=== PATIENT | female | born 1975 | race Caucasian/White ===

== ENCOUNTER 2017-09-21 17:25 | Emergency (ER) | payer MEDICAID ==
[2017-09-21] MEDS ORDERED: Morphine 2 MG/ML Syringe IVPUSH ONE (17:51)
[2017-09-21] MEDS ORDERED: Nitroglycerin 0.4 MG Tab.SL SL PRN (18:13)
[2017-09-21] MEDS ORDERED: Heparin Sodium 5,000 UNITS/0.5 ML Syringe IVPUSH ONE (18:39)
[2017-09-21] MEDS ORDERED: Clopidogrel 75 MG Tab PO ONE (18:40)
[2017-09-21] MEDS ORDERED: Heparin Sodium/D5W 25,000 UNITS/500 ML BAG IV SCH (18:45)
--- NOTE | 2017-09-21 18:45 | EDM.PDOC ---
ED HPI GENERAL MEDICAL PROBLEM - General Time Seen by Provider: 09/21/17 18:00 Source of Information: Reports: Patient History Limitations: Reports: No Limitations - History of Present Illness INITIAL COMMENTS - FREE TEXT/NARRATIVE: According to patient she claims that she was sleeping in her bed and felt a sudden onset of chest pain. Chest pain was over the precardium and was radiating into her left arm and finger. Rates at 9/10. She did call EMT. She is here in the emergency room. Rates her EKG at 9/10. No nausea/vomiting. Epigastrium pain, but has been belching on and off. No pain with deep breathing. pt claims that she had MA in 2000 when she was in [facility] and has one stent placed. Onset: Today Onset Date: 09/21/17 Onset Time: 18:00 Duration: Hour(s): (1) Location: Reports: Chest Quality: Reports: Pressure, Sharp Severity: Severe Improves with: Reports: None Worsens with: Reports: None Associated Symptoms: Reports: Chest Pain. 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: Psychiatric History: Reports: Depression - Past Surgical History Cardiovascular Surgical History: Reports: Coronary Artery Stent GI Surgical History: Reports: Bariatric Procedure Female Surgical History: Reports: Section Neurological Surgical History: Reports: C-Spine, Discectomy, Spinal Fusion Social & Family History - Tobacco Use Smoking Status *Q: Current Every Day Smoker Years of Tobacco use: 25 Packs/Tins Daily: 1 Used Tobacco, but Quit: No Month Tobacco Last Used: Dec Second Hand Smoke Exposure: Yes - Alcohol Use Days Per Week of Alcohol Use: 0 - Recreational Drug Use Recreational Drug Use: No ED ROS GENERAL - Review of Systems Review Of Systems: See Below Constitutional: Denies: Fever, Chills HEENT: Denies: Rhinitis, Sinus Problem, Throat Pain, Throat Swelling Respiratory: Denies: Shortness of Breath, Wheezing, Cough, Sputum Cardiovascular: Reports: Chest Pain, Lightheadedness GI/Abdominal: Denies: Abdominal Pain, Nausea, Vomiting : Denies: Discharge, Dysuria Musculoskeletal: Denies: Neck Pain, Shoulder Pain, Joint Pain, Joint Swelling Skin: Denies: Pruritis, Rash Neurological: Denies: Confusion, Dizziness, Headache, Syncope, Tingling, Weakness ED EXAM, GENERAL - Physical Exam Exam: See Below Exam Limited By: No Limitations General Appearance: Alert, WD/WN, Anxious, Moderate Distress Eye Exam: Bilateral Eye: EOMI, PERRL Ears: Normal External Exam, Normal Canal, Hearing Grossly Normal, Normal TMs Ear Exam: Bilateral Ear: Auricle Normal, Canal Normal, TM normal Nose: Normal Inspection, Normal Mucosa, No Blood Throat/Mouth: Normal Inspection, Normal Lips, Normal Teeth, Normal Gums, Normal Oropharynx, Normal Voice, No Airway Compromise Head: Atraumatic, Normocephalic Neck: Normal Inspection, Supple, Non-Tender, Full Range of Motion Respiratory/Chest: No Respiratory Distress, Lungs Clear, Normal Breath Sounds, No Accessory Muscle Use, Chest Non-Tender Cardiovascular: Normal Peripheral Pulses, Regular Rate, Rhythm, No Edema, No Gallop, No JVD, No Murmur, No Rub Peripheral Pulses: 4+: Radial (L), Radial (R), Posterior Tibial (L), Posterior Tibial (R), Dorsalis Pedis (L), Dorsalis Pedis (R) GI/Abdominal: Normal Bowel Sounds, Soft, Non-Tender, No Organomegaly, No Distention, No Abnormal Bruit, No Mass Back Exam: Normal Inspection, Full Range of Motion, NT Extremities: Normal Inspection, Normal Range of Motion, Non-Tender, Normal Capillary Refill, No Pedal Edema Neurological: Alert, Oriented, CN II-XII Intact, Normal Cognition, Normal Gait, Normal Reflexes, No Motor/Sensory Deficits Skin Exam: Warm, Intact EKG INTERPRETATION Rate (Beats/Min): [address]: Normal P-Wave: Present ST-T: Elevated (lead 2,3 and AVF) Course - Vital Signs Text/Narrative:: Pt rates her pain at 9/10 on admission, EKG was done, which does show ST elevation in Lead 2,3 and AVF.Appear like acute inferior wall MA. Pt did receive 4mg S/C morphine and Oxygen was started and lab work ordered. Pt did receive plavix 600mg PO and also heparin 4000 units bolus given followed by 1000 units/hr maintenance. I did call [facility] and discuss patient with Dr. Ahmadi the body maker change control specialist. He was accepting the patient, but helicopter could not fly due to bad weather and the fixed wing could not fly to [place] due to the airport not being ploughed. Hence at this point I did call [facility], but unfortunately could not get hold of the body maker to discuss the patient. the fixed wing from [place] could not fly until they had accepting physician at [facility]. Around 7:00 PM , I did reexamine patient and asked to rate her pain, and she said it was down to 5/10. And soon pt just held her chest and fell backwards and turned pale and started to have agonal breaths. Immediately pt was reassessed, she had no palpable pulse or Blood pressure.Code was called. CPR was started around 7:07PM and Immediately patient was intubated. She was in ventricular fibrillation and she went into asystole, she did receive 2 shocks and 3 IV epinephrine and she has no palpable pulse or breathing and her monitor showed asystole after 14 minutes of resuscitation around At which point Pt was declared at 7:21 PM. pt's pupils were dilated to 6mm and fixed. As the patient was extubated and IV lines were removed and nurses were cleaning up the patient, patient started to have slow breaths spontaneously. Pt was placed on monitor and she had pulse around 30/minute. She had palpable central pulses. Pt was re-intubated immediately and 2 Intraosseous lines were obtained and Amidarone 150mg IV was given over 10minutes followed by maintenance infusion. Pt's Pulse did improve and rate was around 70-80 and her blood pressure slowly improved and was around 130/86mmhg. Pt's chest xray post intubation was in place. her Spo2 was well maintained at 100%. At which point I did call back to [facility], and discuss the Post-resuscitation with Dr. Pollock the emergency room physician. He does agree to accept the patient. At this point weather seems to be getting better and the [facility] ambulance is going to be here to transfer patient. Pt's presently is intubated and maintaining her blood pressure. She has IV heparin at 1000 units/hr and also on amidarone maintenance drip. She vitals are stable. Pt is transferred by air ambulance to [facility]. Further care per Dr. Pollock. - Orders/Labs/Meds Orders: Active Orders 24 hr Category Date Time Status EKG Documentation Completion [RC] ASDIRECTED Care 09/21/17 17:50 Active Oxygen Therapy [RC] ASDIRECTED Care 09/21/17 18:12 Active Chest 1V Frontal [CR] Stat Exams 09/21/17 Taken Chest 1V Frontal [CR] Stat Exams 09/21/17 17:51 Taken Heparin Sodium/D5W [Heparin 25,000 Units in D5W 500 ML] Med 09/21/17 18:45 Pending 25,000 units in 500 ml IV TITRATE Nitroglycerin [Nitrostat] Med 09/21/17 18:13 Active 0.4 mg SL Q5M PRN Medication Orders Heparin Sodium/Dextrose (Heparin 25,000 Units In D5w 500 Ml) 25,000 units in 500 mls @ 0 mls/hr IV TITRATE VITA PRN Reason: 1,000 UNITS/KG/HR Nitroglycerin (Nitrostat) 0.4 mg SL Q5M PRN PRN Reason: Chest Pain Labs: Laboratory Tests 09/21/17 09/21/17 09/21/17 Range/Units 18:20 18:20 18:20 WBC 11.2 H D (4.0-11.0) K/uL RBC 4.26 (3.80-5.80) M/uL Hgb 9.0 L (11.5-16.5) g/dL Hct 29.6 L (37.0-47.0) % MCV 70 L (76-96) fL MCH 21.1 L (27.0-32.0) pg MCHC 30.4 L (31.0-35.0) g/dL RDW 18.6 H (11.0-16.0) % Plt Count 380 D (150-500) K/uL MPV 9.4 (6.0-10.0) fL Neut % (Auto) 54.5 (45.0-70.0) % Lymph % (Auto) 34.5 (20.0-40.0) % Moffat % (Auto) 6.5 (3.0-10.0) % Eos % (Auto) 3.7 (1.0-5.0) % Baso % (Auto) 0.8 H (0.0-0.5) % Neut # (Auto) 6.11 (2.00-7.50) K/uL Lymph # (Auto) 3.87 (1.50-4.00) K/uL Moffat # (Auto) 0.73 (0.20-0.80) K/uL Eos # (Auto) 0.42 H (0.04-0.40) K/uL Baso # (Auto) 0.09 (0.02-0.10) K/uL PT 9.3 (9.0-11.5) sec INR 1.0 (1.0-3.5) APTT 21.0 L (27.0-35.0) SECONDS Sodium 141 (136-145) mmol/L Potassium 3.4 L (3.5-5.1) mmol/L Chloride 104 (98-107) mmol/L Carbon Dioxide 21.2 (21.0-32.0) mmol/L Anion Gap 19.2 H (5.0-15.0) mmol/L BUN 8 D (8-26) mg/dL Creatinine 0.72 (0.55-1.02) mg/dL Est Cr Clr Drug Dosing TNP Estimated GFR (MDRD) > 60 (>60) MLS/MIN BUN/Creatinine Ratio 11.1 (6-25) Glucose 117 H D (74-100) mg/dL Calcium 8.7 (8.5-10.1) mg/dL Total Bilirubin 0.1 D (0.0-1.0) mg/dL AST 20 (15-37) U/L ALT 21 (12-78) U/L Alkaline Phosphatase 82 (46-116) U/L Troponin I (0.000-0.060) ng/mL Total Protein 7.1 (6.4-8.2) g/dL Albumin 3.3 L (3.4-5.0) g/dL Globulin 3.8 (2.2-4.2) g/dL Albumin/Globulin Ratio 0.9 (0.8-2.0) 09/21/17 Range/Units 18:20 WBC (4.0-11.0) K/uL RBC (3.80-5.80) M/uL Hgb (11.5-16.5) g/dL Hct (37.0-47.0) % MCV (76-96) fL MCH (27.0-32.0) pg MCHC (31.0-35.0) g/dL RDW (11.0-16.0) % Plt Count (150-500) K/uL MPV (6.0-10.0) fL Neut % (Auto) (45.0-70.0) % Lymph % (Auto) (20.0-40.0) % Moffat % (Auto) (3.0-10.0) % Eos % (Auto) (1.0-5.0) % Baso % (Auto) (0.0-0.5) % Neut # (Auto) (2.00-7.50) K/uL Lymph # (Auto) (1.50-4.00) K/uL Moffat # (Auto) (0.20-0.80) K/uL Eos # (Auto) (0.04-0.40) K/uL Baso # (Auto) (0.02-0.10) K/uL PT (9.0-11.5) sec INR (1.0-3.5) APTT (27.0-35.0) SECONDS Sodium (136-145) mmol/L Potassium (3.5-5.1) mmol/L Chloride (98-107) mmol/L Carbon Dioxide (21.0-32.0) mmol/L Anion Gap (5.0-15.0) mmol/L BUN (8-26) mg/dL Creatinine (0.55-1.02) mg/dL Est Cr Clr Drug Dosing Estimated GFR (MDRD) (>60) MLS/MIN BUN/Creatinine Ratio (6-25) Glucose (74-100) mg/dL Calcium (8.5-10.1) mg/dL Total Bilirubin (0.0-1.0) mg/dL AST (15-37) U/L ALT (12-78) U/L Alkaline Phosphatase (46-116) U/L Troponin I 0.099 H* D (0.000-0.060) ng/mL Total Protein (6.4-8.2) g/dL Albumin (3.4-5.0) g/dL Globulin (2.2-4.2) g/dL Albumin/Globulin Ratio (0.8-2.0) Meds: Medications Generic Name Dose Route Start Last Admin Trade Name Freq PRN Reason Stop Dose Admin Heparin Sodium/Dextrose 25,000 units in 500 mls @ 0 mls/hr 09/21/17 18:45 Heparin 25,000 Units In D5w 500 Ml IV TITRATE VITA 1,000 UNITS/KG/HR Nitroglycerin 0.4 mg 09/21/17 18:13 Nitrostat SL Q5M PRN Chest Pain Discontinued Medications Generic Name Dose Route Start Last Admin Trade Name Freq PRN Reason Stop Dose Admin Clopidogrel Bisulfate 600 mg 09/21/17 18:40 Plavix PO 09/21/17 18:41 ONETIME ONE Heparin Sodium (Porcine) 4,000 units 09/21/17 18:39 Heparin Sodium IVPUSH 09/21/17 18:40 ONETIME ONE Morphine Sulfate 2 mg 09/21/17 17:51 Morphine IVPUSH 09/21/17 17:52 ONETIME ONE Departure - Departure Time of Disposition: 22:00 Disposition: DC/Tfer to Acute Hospital 02 Condition: Fair Clinical Impression: Acute MA, inferior wall, Cardiac arrest, History of successful cardiopulmonary resuscitation - Discharge Information Referrals: PCP,None [Primary Care Provider] - - Problem List & Annotations (1) Acute MA, inferior wall Status: Acute Current Visit: Yes (2) Cardiac arrest SNOMED Code(s): 843275315 Code(s): I46.9 - CARDIAC ARREST, CAUSE UNSPECIFIED Status: Acute Current Visit: Yes (3) History of successful cardiopulmonary resuscitation SNOMED Code(s): 866532494 Code(s): Z92.89 - PERSONAL HISTORY OF OTHER MEDICAL TREATMENT Status: Acute Current Visit: Yes - Problem List Review Problem List Initiated/Reviewed/Updated: Yes - My Orders Last 24 Hours: My Active Orders 09/21/17 Chest 1V Frontal [CR] Stat 09/21/17 17:50 EKG Documentation Completion [RC] ASDIRECTED 09/21/17 17:51 Chest 1V Frontal [CR] Stat 09/21/17 18:12 Oxygen Therapy [RC] ASDIRECTED 09/21/17 18:13 Nitroglycerin [Nitrostat] 0.4 mg SL Q5M PRN 09/21/17 18:45 Heparin Sodium/D5W [Heparin 25,000 Units in D5W 500 ML] 25,000 units in 500 ml IV TITRATE - Assessment/Plan Last 24 Hours: My Active Orders 09/21/17 Chest 1V Frontal [CR] Stat 09/21/17 17:50 EKG Documentation Completion [RC] ASDIRECTED 09/21/17 17:51 Chest 1V Frontal [CR] Stat 09/21/17 18:12 Oxygen Therapy [RC] ASDIRECTED 09/21/17 18:13 Nitroglycerin [Nitrostat] 0.4 mg SL Q5M PRN 09/21/17 18:45 Heparin Sodium/D5W [Heparin 25,000 Units in D5W 500 ML] 25,000 units in 500 ml IV TITRATE Assessment:: Acute inferior wall MA with cardiac arrest post-resuscitation Plan: Pt rates her pain at 9/10 on admission, EKG was done, which does show ST elevation in Lead 2,3 and AVF.Appear like acute inferior wall MA. Pt did receive 4mg S/C morphine and Oxygen was started and lab work ordered. Pt did receive plavix 600mg PO and also heparin 4000 units bolus given followed by 1000 units/hr maintenance. I did call [facility] and discuss patient with Dr. Ahmadi the body maker change control specialist. He was accepting the patient, but helicopter could not fly due to bad weather and the fixed wing could not fly to [place] due to the airport not being ploughed. Hence at this point I did call [facility], but unfortunately could not get hold of the body maker to discuss the patient. the fixed wing from [place] could not fly until they had accepting physician at [facility]. Around 7:00 PM , I did reexamine patient and asked to rate her pain, and she said it was down to 5/10. And soon pt just held her chest and fell backwards and turned pale and started to have agonal breaths. Immediately pt was reassessed, she had no palpable pulse or Blood pressure.Code was called. CPR was started around 7:07PM and Immediately patient was intubated. She was in ventricular fibrillation and she went into asystole, she did receive 2 shocks and 3 IV epinephrine and she has no palpable pulse or breathing and her monitor showed asystole after 14 minutes of resuscitation around At which point Pt was declared at 7:21 PM. pt's pupils were dilated to 6mm and fixed. As the patient was extubated and IV lines were removed and nurses were cleaning up the patient, patient started to have slow breaths spontaneously. Pt was placed on monitor and she had pulse around 30/minute. She had palpable central pulses. Pt was re-intubated immediately and 2 Intraosseous lines were obtained and Amidarone 150mg IV was given over 10minutes followed by maintenance infusion. Pt's Pulse did improve and rate was around 70-80 and her blood pressure slowly improved and was around 130/86mmhg. Pt's chest xray post intubation was in place. her Spo2 was well maintained at 100%. At which point I did call back to [facility], and discuss the Post-resuscitation with Dr. Pollock the emergency room physician. He does agree to accept the patient. At this point weather seems to be getting better and the [facility] air ambulance is going to be here to transfer patient. Pt's presently is intubated and maintaining her blood pressure. She has IV heparin at 1000 units/hr and also on amidarone maintenance drip. She vitals are stable. Pt is transferred by air ambulance to [facility]. Further care per Dr. Pollock.
[2017-09-21] MEDS ORDERED: HYDROmorphone 4 MG/ML Syringe ONE (21:45)
[2017-09-21] MEDS ORDERED: Amiodarone 450 MG/9 ML SDV IV ONE (21:45)
[2017-09-21] MEDS ORDERED: Amiodarone 150 MG/3 ML SDV ONE (21:45)
[2017-09-21] MEDS ORDERED: Midazolam 1 MG/ML 5 ML SDV ONE (21:45)
[2017-09-21] MEDS ORDERED: Heparin Sodium 1,000 Units/ML 10 ML MDV ONE (21:45)
[2017-09-21] MEDS ORDERED: Morphine 2 MG/ML Syringe ONE ×2 (21:45)
[2017-09-21] MEDS ORDERED: EPINEPHrine 1:10,000 1 MG/10 ML Syringe ONE ×3 (21:45)
[2017-09-22 04:42] VITALS: BP 149/107
--- NOTE | 2017-09-22 11:42 | CR ---
DATE OF SERVICE: 09/21/17 CLINICAL DATA: CHECK TUBE PLACEMENT AP PORTABLE CHEST: Comparison is made to a prior exam from earlier in the day. An endotracheal tube has been inserted and its distal tip is 1 cm above the mona. The heart and lungs are stable. No acute abnormalities. [id number] [facility]
--- NOTE | 2017-09-23 07:02 | CR ---
DATE OF SERVICE: 09/21/2017 CLINICAL DATA: Chest pain. AP PORTABLE CHEST Comparison is made to a prior exam dated 08/05/2014. The heart size is normal. The lungs are clear. No pneumothorax. No pleural effusions. No areas of consolidation. No change from the prior exam. IMPRESSION: No evidence of acute intrathoracic disease. [id number] [facility]
== END 2017-09-21 22:01 ==
LOC: LB.ED 17:25
DX: I21.19 ST elevation (STEMI) myocardial infarction involving other coronary artery of inferior wall (principal); I46.9 Cardiac arrest, cause unspecified; I10 Essential (primary) hypertension; F17.210 Nicotine dependence, cigarettes, uncomplicated; Z88.5 Allergy status to narcotic agent
CPT/HCPCS: 31500; 36415; 51702; 71010; 80053; 82962; 84484; 85025; 85610; 85730; 92950; 93005; 96361; 96365; 96367; 96375; 99291; 99292; A0425; A0429; J0171; J0282; J1170; J1644; J2250; J2270; J7040; 96374; 99285-25; A0888

== ENCOUNTER 2018-06-02 11:25 | Emergency (ER) | payer MEDICAID ==
[2018-06-02 13:34] VITALS: BP 131/86
--- NOTE | 2018-06-02 19:42 | ER ---
DATE OF SERVICE: 06/02/2018 HISTORY OF PRESENT ILLNESS: This 42-year-old woman who has anoxic brain syndrome and twitches. Had a twitch where she lost her balance, a generalized body twitch where she lost her balance and hit her head. According to her daughter, she fell twice. She did not lose consciousness. She denies nausea or vomiting. She has bleeding to her scalp. PHYSICAL EXAMINATION: HEENT: She has abrasions and a 2 cm laceration to her scalp. Pupils are equal and reactive. Cranial nerves are grossly intact. NECK: Supple. LUNGS: Good air movement. No wheezes. HEART: Regular rate and rhythm. ABDOMEN: Benign. ASSESSMENT: Scalp laceration due to a fall. PLAN: Five sutures were placed in her scalp after the wound was cleansed and irrigated, and her tetanus status was checked and updated. CARMEN/JUAN /[id number] KATHY
== END 2018-06-02 12:20 | disposition home or self-care (01) ==
LOC: LB.ED 11:25
DX: S01.01XA Laceration without foreign body of scalp, initial encounter (principal); X50.0XXA Overexertion from strenuous movement or load, initial encounter; W18.39XA Other fall on same level, initial encounter
CPT/HCPCS: 12001; 99282-25

== ENCOUNTER 2019-01-23 04:10 | Emergency (ER) | payer MEDICAID ==
[2019-01-23 04:52] VITALS: BP 136/86
--- NOTE | 2019-01-23 09:25 | CT ---
UNENHANCED BRAIN CT, 01/23/19 Multislice acquisition through the brain without IV contrast was performed. No priors No masses or mass effect. No intracranial hemorrhage. No evidence of acute or subacute infarct. No fractures. There is mucosal thickening throughout the ethmoid sinuses. There is also mucosal thickening in the sphenoid, maxillary, and right frontal sinus. There are air-fluid levels in both maxillary sinuses. These findings are consistent with acute sinusitis. No other significant findings. [id number] [facility]
--- NOTE | 2019-01-23 09:57 | CT ---
CERVICAL SPINE CT, 01/23/19 Multislice axial acquisition from the base of the skull the bottom of T3 was performed. Axial images and sagittal and coronal reformations are reviewed. There is straightening of the normal cervical lordosis on the sagittal reformations. This is most likely related to positioning or muscle spasm. The patient is status post C5-6 and C6-7 diskectomy and fusion. There is internal fixation of C5, C6, and C7 with anterior lateral plates and multiple screws. No acute fracture or dislocation. No focal lytic or blastic bone lesions. There is uncinate joint hypertrophy at the C5-6 level bilaterally. There is also uncinate joint hypertrophy at the C6-7 level bilaterally. There is mild neural foramen stenosis. No significant central stenosis. No lytic or blastic bone lesions. The soft tissues are unremarkable. The visualized lung apices are clear. IMPRESSION: No acute abnormalities. [id number] [facility]
--- NOTE | 2019-01-23 17:56 | EDM.PDOC ---
ED HPI GENERAL MEDICAL PROBLEM - General Chief Complaint: General Stated Complaint: FALL AT HOME Time Seen by Provider: 01/23/19 04:30 Source of Information: Reports: Patient, Family History Limitations: Reports: Other (memory loss) - History of Present Illness INITIAL COMMENTS - FREE TEXT/NARRATIVE: This is a 43yo F here for a recent syncopal episode. She has had these episodes multiple times the past 6 months. Her last visit with Neurology was 6 months ago. Her last cardiovasular episode was 1 year ago. She has been taking gabapentin for her muscular jerk episodes which have improved her symptoms but she continues to have episodes that fluctuate and some have been severe to the point of falling. Her recent episode that she does not remember is one where she fell face first and she was found by her daughter this am after her daughter woke up to her banging her head against the wall due to her jerks. Patient brought into the ER by EMS. Onset: Sudden Duration: Resolved Prior to Arrival Location: Reports: Generalized Severity: Moderate Associated Symptoms: Reports: Other (loss of memory) Treatments LIST OF FIRST JOB IDEAS: Reports: Spinal Immobilization Posterior Neck Pain Score (Numeric/FACES): 5 Facial Pain Score (Numeric/FACES): 4 - Related Data Allergies Allergy/AdvReac Type Severity Reaction Status Date / Time hydromorphone HCl AdvReac Intermediate Vomiting Verified 01/23/19 04:15 [From Dilaudid] Home Meds: Home Meds Gabapentin [Neurontin] 600 mg PO QPM 07/22/18 [History] Metoprolol Succinate [Toprol XL] 25 mg PO DAILY 07/22/18 [History] atorvaSTATin [Lipitor] 40 mg PO DAILY 07/22/18 [History] FLUoxetine HCl [Fluoxetine HCl] 40 mg PO DAILY 01/23/19 [History] Gabapentin [Neurontin] 300 mg PO DAILY 01/23/19 [History] Past Medical History HEENT History: Reports: Impaired Vision Cardiovascular History: Reports: Hypertension, NM, Other (See Below) Other Cardiovascular History: Cardiac Arrest Gastrointestinal History: Reports: None Genitourinary History: Reports: None PCAS History: Reports: Musculoskeletal History: Reports: Other (See Below) Neurological History: Reports: Other (See Below) Other Neuro History: anoxic encephalopathy; intermittent muscle spasms Psychiatric History: Reports: Addiction, Depression, Other (See Below) Other Psychiatric History: ETOH abuse - Past Surgical History HEENT Surgical History: Reports: None Cardiovascular Surgical History: Reports: Coronary Artery Bypass, Coronary Artery Stent GI Surgical History: Reports: Bariatric Procedure Female Surgical History: Reports: Section Neurological Surgical History: Reports: C-Spine, Discectomy, Spinal Fusion Social & Family History - Caffeine Use Caffeine Use: Reports: None ED ROS GENERAL - Review of Systems Review Of Systems: ROS reveals no pertinent complaints other than HPI. ED EXAM, GENERAL - Physical Exam Exam: See Below Exam Limited By: Other (memory loss - episode described by father) General Appearance: Alert, WD/WN, No Apparent Distress Eye Exam: Bilateral Eye: EOMI, PERRL Ears: Normal External Exam Nose: Normal Inspection, Other (small abrasion) Throat/Mouth: Other (teeth chips) Head: Other (facial abrasion) Neck: Normal Inspection Respiratory/Chest: No Respiratory Distress, Lungs Clear, Normal Breath Sounds Cardiovascular: Normal Peripheral Pulses, Regular Rate, Rhythm Peripheral Pulses: 2+: Dorsalis Pedis (L), Dorsalis Pedis (R) GI/Abdominal: Normal Bowel Sounds Back Exam: Normal Inspection Extremities: Normal Inspection Neurological: Alert, Oriented, Memory Loss Recent Events Psychiatric: Normal Affect, Normal Mood Skin Exam: Warm, Dry, Intact Course - Vital Signs Last Recorded V/S: Last Vital Signs Temp 37.0 C 01/23/19 04:11 Pulse 67 01/23/19 04:51 Resp 16 01/23/19 04:11 BP 136/86 01/23/19 04:51 Pulse Ox 100 01/23/19 04:51 Departure - Departure Time of Disposition: 06:30 Disposition: Home, Self-Care 01 Condition: Good Clinical Impression: Seizure-like activity - Discharge Information Instructions: Head Injury, Adult, Levetiracetam tablets Referrals: PCP,None [Primary Care Provider] - Forms: ED Department Discharge Additional Instructions: Take Keppra 500mg orally twice a day. Follow up with primary provider to see how the Keppra is working for you. It will take at least a week for the Keppra to start working. Make a follow up appointment with the neurologist. Come back to the ER if you develop sudden severe headache, sudden vomiting, blurred vision, or one sided weakness/facial droop. - Problem List & Annotations (1) Seizure-like activity SNOMED Code(s): 452985292 Code(s): R56.9 - UNSPECIFIED CONVULSIONS Status: Acute Priority: High - Problem List Review Problem List Initiated/Reviewed/Updated: Yes - Assessment/Plan Plan: These acute on chronic seizure like events have cause syncopal like episodes without aura and without post-ictal states. Patient placed on trial of Keppra and counseled on follow up with Neurology at earliest convenience ERIKA. Patient and family agree with plan and f/u. Counseled on close monitoring for safety and management.
== END 2019-01-23 05:45 | disposition home or self-care (01) ==
LOC: LB.ED 04:10
DX: R56.9 Unspecified convulsions (principal); I10 Essential (primary) hypertension; I25.2 Old myocardial infarction; Z79.899 Other long term (current) drug therapy; Z88.8 Allergy status to other drugs, medicaments and biological substances; Z95.1 Presence of aortocoronary bypass graft
CPT/HCPCS: 70450; 72125; 99284-25; A0425; A0429

== ENCOUNTER 2023-04-14 08:09 | Emergency (ER) | payer MEDICARE, MEDICAID ==
[2023-04-14] MEDS ORDERED: Sodium Chloride 0.9% 10 ML Syringe FLUSH PRN (09:07)
[2023-04-14] MEDS ORDERED: Sodium Chloride 0.9% 1,000 ML IV SCH (09:15)
[2023-04-14 09:28] LABS: HEMOGLOBIN 13.6 g/dL (11.5-16.5); MEAN CORPUSCULAR HEMOGLOBIN 29.2 pg (27.0-32.0); RED BLOOD CELL COUNT 4.66 M/uL (3.80-5.80); WHITE BLOOD CELL COUNT,WBC 8.9 K/uL (4.0-11.0)
[2023-04-14 09:39] LABS: APPEARANCE,URINE CLEAR (CLEAR); BILIRUBIN,URINE NEGATIVE (NEGATIVE); COLOR,URINE YELLOW; GLUCOSE,URINE NEGATIVE (NEGATIVE); KETONES,URINE NEGATIVE (NEGATIVE); LEUKOCYTE ESTERASE,URINE NEGATIVE (NEGATIVE); NITRITE,URINE NEGATIVE (NEGATIVE); OCCULT BLOOD,URINE NEGATIVE (NEGATIVE); PH,URINE 6.5 (5.0-8.0); PROTEIN,URINE NEGATIVE (NEGATIVE); UROBILINOGEN,URINE 0.2 E.U./dL (0.2-1.0)
[2023-04-14 09:40] LABS: ALBUMIN 3.5 g/dL (3.4-5.0); ANION GAP 8.8 mmol/L (5.0-15.0); BILIRUBIN TOTAL 0.3 mg/dL (0.0-1.0); BUN/CREATININE RATIO 11.5 (6-25); CARBON DIOXIDE,CO2 30.1 mmol/L (21.0-32.0); CREATININE 0.87 mg/dL (0.55-1.02); EST CRCL DRUG DOSING (CG) 76.07 mL/min; MAGNESIUM 1.7 mg/dL (1.8-2.4); PHOSPHORUS 3.3 mg/dL (2.5-4.9); POTASSIUM,K 3.9 mmol/L (3.5-5.1); TROPONIN I HIGH SENSITIVITY 5.6 pg/ml (<=60.4)
[2023-04-14] MEDS ORDERED: Cyanocobalamin (Vitamin B12) 1,000 MCG/ML SDV IM ONE (11:53)
[2023-04-14 14:08] VITALS: PULSE 54
[2023-04-14 14:17] VITALS: BP 137/78
== END 2023-04-14 14:25 | disposition home or self-care (01) ==
LOC: LB.ED 08:09
DX: E86.0 Dehydration (principal); E83.42 Hypomagnesemia; R41.0 Disorientation, unspecified; I10 Essential (primary) hypertension; I25.2 Old myocardial infarction; Z98.890 Other specified postprocedural states; Z79.899 Other long term (current) drug therapy; Z79.82 Long term (current) use of aspirin
CPT/HCPCS: 36415; 70450; 71045; 80053; 81003; 82140; 83605; 83735; 84100; 84484; 85027; 93005; 96361; 96365; 96372; 99285; A0425; A0429; J3420; J3475; J7030

== ENCOUNTER 2023-05-13 08:23 | Emergency (ER) | payer MEDICARE, MEDICAID ==
[2023-05-13] MEDS ORDERED: Sodium Chloride 0.9% 10 ML Syringe FLUSH PRN (08:36)
[2023-05-13 08:47] VITALS: PULSE 77
[2023-05-13 08:58] LABS: HEMATOCRIT 39.3 % (37.0-47.0); HEMOGLOBIN 13.5 g/dL (11.5-16.5); MEAN CORPUSCULAR HEMOGLOBIN 29.2 pg (27.0-32.0); MEAN CORPUSCULAR HGB CONC 34.4 g/dL (31.0-35.0); MEAN PLATELET VOLUME 10.3 fL (6.0-10.0); RED BLOOD CELL COUNT 4.62 M/uL (3.80-5.80); RED CELL DISTRIBUTION WIDTH 12.7 % (11.0-16.0); WHITE BLOOD CELL COUNT,WBC 9.7 K/uL (4.0-11.0)
[2023-05-13] MEDS ORDERED: Sodium Chloride 0.9% 1,000 ML IV SCH (09:00)
[2023-05-13 09:11] VITALS: BP 136/88
[2023-05-13 09:16] LABS: ANION GAP 10.9 mmol/L (5.0-15.0); BLOOD UREA NITROGEN,BUN 6 mg/dL (8-26); BUN/CREATININE RATIO 9.1 (6-25); CARBON DIOXIDE,CO2 28.2 mmol/L (21.0-32.0); CHLORIDE,CL 99 mmol/L (98-107); CREATININE 0.66 mg/dL (0.55-1.02); ESTIMATED GFR 107 mL/min (>60); GLUCOSE RANDOM 95 mg/dL (74-100); MAGNESIUM 1.5 mg/dL (1.8-2.4); PHOSPHORUS 3.2 mg/dL (2.5-4.9); POTASSIUM,K 4.1 mmol/L (3.5-5.1); SODIUM,NA 134 mmol/L (136-145)
[2023-05-13 09:42] LABS: APPEARANCE,URINE SLIGHTLY CLOUDY (CLEAR); BILIRUBIN,URINE NEGATIVE (NEGATIVE); GLUCOSE,URINE NEGATIVE (NEGATIVE); KETONES,URINE NEGATIVE (NEGATIVE); LEUKOCYTE ESTERASE,URINE NEGATIVE (NEGATIVE); NITRITE,URINE NEGATIVE (NEGATIVE); OCCULT BLOOD,URINE NEGATIVE (NEGATIVE); PH,URINE 6.5 (5.0-8.0); PROTEIN,URINE NEGATIVE (NEGATIVE); UROBILINOGEN,URINE 0.2 E.U./dL (0.2-1.0)
[2023-05-13 09:45] LABS: COLOR,URINE YELLOW
== END 2023-05-13 10:20 | disposition home or self-care (01) ==
LOC: LB.ED 08:23
DX: E86.0 Dehydration (principal); E83.42 Hypomagnesemia; I25.2 Old myocardial infarction; I10 Essential (primary) hypertension; E78.00 Pure hypercholesterolemia, unspecified; M19.90 Unspecified osteoarthritis, unspecified site; E66.9 Obesity, unspecified; Z98.890 Other specified postprocedural states; Z79.899 Other long term (current) drug therapy; Z79.82 Long term (current) use of aspirin
CPT/HCPCS: 36415; 80048; 81003; 83735; 84100; 85027; 93005; 96361; 96374; 99285; J3475; J7030

== ENCOUNTER 2023-09-07 09:39 | Emergency (ER) | payer MEDICARE, MEDICAID ==
[2023-09-07] MEDS ORDERED: Sodium Chloride 0.9% 10 ML Syringe FLUSH PRN (09:52)
[2023-09-07] MEDS ORDERED: Sodium Chloride 0.9% 1,000 ML IV ONE (09:54)
[2023-09-07 10:09] LABS: BASOPHILS ABSOLUTE AUTO 0.03 K/uL (0.02-0.10); BASOPHILS PERCENT AUTO 0.3 % (0.0-0.5); EOSINOPHILS ABSOLUTE AUTO 0.26 K/uL (0.04-0.40); EOSINOPHILS PERCENT AUTO 2.6 % (1.0-5.0); HEMATOCRIT 37.7 % (37.0-47.0); HEMOGLOBIN 12.6 g/dL (11.5-16.5); LYMPHOCYTES ABSOLUTE AUTO 2.12 K/uL (1.50-4.00); LYMPHOCYTES PERCENT AUTO 21.3 % (20.0-40.0); MEAN CORPUSCULAR HEMOGLOBIN 28.6 pg (27.0-32.0); MEAN CORPUSCULAR HGB CONC 33.4 g/dL (31.0-35.0); MEAN CORPUSCULAR VOLUME 86 fL (76-96); MEAN PLATELET VOLUME 10.1 fL (6.0-10.0); NEUTROPHILS ABSOLUTE AUTO 6.82 K/uL (2.00-7.50); NEUTROPHILS PERCENT AUTO 68.8 % (45.0-70.0); PLATELET COUNT,PLT 200 K/uL (150-500); RED BLOOD CELL COUNT 4.41 M/uL (3.80-5.80); RED CELL DISTRIBUTION WIDTH 12.9 % (11.0-16.0); WHITE BLOOD CELL COUNT,WBC 9.9 K/uL (4.0-11.0)
[2023-09-07 10:14] VITALS: BP 148/86; PULSE 110
[2023-09-07 10:29] LABS: ANION GAP 12.7 mmol/L (5.0-15.0); CARBON DIOXIDE,CO2 27.6 mmol/L (21.0-32.0); POTASSIUM,K 3.3 mmol/L (3.5-5.1)
[2023-09-07 10:30] LABS: A/G RATIO 0.9 (0.8-2.0); ALBUMIN 3.5 g/dL (3.4-5.0); BILIRUBIN TOTAL 0.3 mg/dL (0.0-1.0); BUN/CREATININE RATIO 9.2 (6-25); CALCIUM 8.8 mg/dL (8.5-10.1); CREATININE 0.76 mg/dL (0.55-1.02); EST CRCL DRUG DOSING (CG) 86.12 mL/min; MAGNESIUM 1.9 mg/dL (1.8-2.4); PROTEIN TOTAL,TP 7.3 g/dL (6.4-8.2)
[2023-09-07] MEDS ORDERED: Potassium Chloride 20 MEQ Tab.ER PO ONE (10:40)
[2023-09-07 10:45] LABS: APPEARANCE,URINE CLEAR (CLEAR); BILIRUBIN,URINE NEGATIVE (NEGATIVE); COLOR,URINE YELLOW; GLUCOSE,URINE NEGATIVE (NEGATIVE); KETONES,URINE NEGATIVE (NEGATIVE); LEUKOCYTE ESTERASE,URINE NEGATIVE (NEGATIVE); NITRITE,URINE NEGATIVE (NEGATIVE); OCCULT BLOOD,URINE TRACE-INTACT (NEGATIVE); PH,URINE 6.5 (5.0-8.0); PROTEIN,URINE NEGATIVE (NEGATIVE); UROBILINOGEN,URINE 0.2 E.U./dL (0.2-1.0)
[2023-09-07 10:48] LABS: BACTERIA,URINE FEW /HPF; RBC,URINE 0-5 /HPF; SQUAMOUS EPITHELIAL CELLS,UR FEW /HPF; WBC,URINE 0-5 /HPF
== END 2023-09-07 11:20 | disposition home or self-care (01) ==
LOC: LB.ED 09:39
DX: E87.6 Hypokalemia (principal); E86.0 Dehydration; R40.4 Transient alteration of awareness; E78.00 Pure hypercholesterolemia, unspecified; I10 Essential (primary) hypertension; I25.2 Old myocardial infarction; E66.9 Obesity, unspecified; Z68.39 Body mass index [BMI] 39.0-39.9, adult; Z88.5 Allergy status to narcotic agent; Z79.899 Other long term (current) drug therapy; Z79.82 Long term (current) use of aspirin
CPT/HCPCS: 36415; 80053; 81001; 82947; 83735; 84484; 85025; 93005; 96360; 99285; A9270; J7030